=== PATIENT | male | born 1980 | race African-American/Black ===

== ENCOUNTER 2022-10-13 09:20 | Emergency (ER) | payer OTHER, MEDICAID, SELFPAY ==
--- NOTE | ~2022-10-13 | XR_ITS ---
EXAMINATION: XR CHEST CLINICAL INFORMATION: Trauma. COMPARISON: None available. TECHNIQUE: 2 views of the chest were obtained. FINDINGS: No significant abnormality is noted involving the heart, lungs, mediastinum, bony thorax or soft tissues. XR/XR chest 2V IMPRESSION: No acute cardiopulmonary process.
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
[2022-10-13 09:24] VITALS: BP 119/81; PULSE 65; RESP 18; TEMP 36.7; O2SAT 98; BMI 22.1
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
[2022-10-13] MEDS: Ibuprofen 600 MG TABLET PO (12:50)
[2022-10-13] MEDS: methocarbamoL 750 MG TABLET PO (12:50)
--- NOTE | 2022-10-13 12:54 | PC.NURSE ---
SLING IN PLACE PLAN IS FOR DISCHARGE
== END 2022-10-13 12:55 | disposition home or self-care (01) ==
PROVIDERS: Emergency Provider Emergency Medicine
DX: S40.011A Contusion of right shoulder, initial encounter (principal); S20.213A Contusion of bilateral front wall of thorax, initial encounter; M25.511 Pain in right shoulder; R07.89 Other chest pain; V18.4XXA Pedal cycle driver injured in noncollision transport accident in traffic accident, initial encounter; Y93.9 Activity, unspecified; Y92.9 Unspecified place or not applicable; Y99.9 Unspecified external cause status
CPT/HCPCS: 71046; 73030; 99283

== ENCOUNTER 2024-09-23 09:45 | Emergency (ER) | payer OTHER, SELFPAY ==
--- NOTE | 2024-09-23 | ECG_ITS ---
Test Reason : cp Blood Pressure : */* mmHG Vent. Rate : 69 BPM Atrial Rate : 69 BPM P-R Int : 136 ms QRS Dur : 86 ms QT Int : 368 ms P-R-T Axes : 52 15 22 degrees QTcB Int : 394 ms Normal sinus rhythm Minimal voltage criteria for LVH, may be normal variant ( Sokolow-Kumar ) Borderline ECG No previous ECGs available Referred By: Generic ED Physician Electronically Signed By: Alex Burk
--- NOTE | ~2024-09-23 | XR_ITS ---
EXAMINATION: XR CHEST 1 VIEW HISTORY: chest pain COMPARISON: Comparison is made with the prior examination dated 10/13/2022. FINDINGS: A single PA view of the chest is submitted. The lungs are expanded and clear. There is no pleural effusion, pneumothorax, or pulmonary vascular congestion. The heart is normal in size. The bones are intact. XR/XR chest 1V IMPRESSION: No acute cardiopulmonary abnormality. Electronically signed by: Juan Rosales MD 09/23/2024 10:25 AM EDT
[2024-09-23 10:03] VITALS: BP 110/65; PULSE 76; RESP 20; TEMP 37; O2SAT 99; BMI 22.1
[2024-09-23 10:19] LABS: MANUAL DIFF FLAG NO
[2024-09-23 10:21] LABS: Basophils Percent Auto 0.5 % (0-2); Eosinophils Percent Auto 0.1 % (0-4); Hematocrit 42.8 % (42.0-52.0); Imm Gran Abs Auto 0.02 X10*3/uL (0.00-0.03); Imm Gran Pct Auto 0.2 % (0.0-0.4); Lymphocytes Absolute Auto 0.8 X10*3/uL (1.2-4.9); Lymphocytes Percent Auto 9.3 % (20-40); Mean Corpuscular HGB Conc 32.7 g/dl (31.0-36.0); Mean Corpuscular Hemoglobin 31.1 pg (27.0-33.0); Mean Corpuscular Volume 95.1 fL (80.0-98.0); Mean Platelet Volume 9.8 fL (9.4-12.4); Monocytes Absolute Auto 0.6 X10*3/uL (0.1-1.2); Monocytes Percent Auto 6.7 % (2-11); Neutrophils Absolute Auto 6.8 x10*3/uL (2.0-8.3); Neutrophils Percent Auto 83.2 % (45-73); Platelet Count 247 X10*3/uL (160-400); Red Cell Distribution Width 12.1 % (11.0-16.0); White Blood Count 8.2 X10*3/uL (4.8-10.8)
[2024-09-23 10:51] LABS: Alanine Aminotransferase 24 U/L (0-40); Albumin Level 4.5 g/dL (3.5-5.0); Alkaline Phosphatase 58 U/L (39-117); Anion Gap 13 (12-20); Aspartate Amino Transferase 27 U/L (5-37); Bilirubin Total 0.7 mg/dL (0.0-1.0); Blood Urea Nitrogen 9 mg/dL (9-16); Carbon Dioxide 27 mmol/L (22-29); Chloride 103 mmol/L (96-108); Creatinine Clr Calc Pharmacy 90.6; Estimated Glomerular Filt Rate > 60; Glucose Random 98 mg/dL (60-115); Magnesium 1.8 mg/dL (1.6-2.6); Sodium 139 mmol/L (135-145); Total Protein 7.7 g/dL (6.5-8.0)
[2024-09-23 10:55] LABS: Troponin-I High Sensitivity < 2.7 ng/L (<3.5-35.0)
--- NOTE | 2024-09-23 12:47 | ECG_ITS ---
Test Reason : CP Blood Pressure : */* mmHG Vent. Rate : 62 BPM Atrial Rate : 62 BPM P-R Int : 126 ms QRS Dur : 86 ms QT Int : 382 ms P-R-T Axes : 76 18 24 degrees QTcB Int : 387 ms Normal sinus rhythm ST elevation, consider early repolarization Borderline ECG When compared with ECG of 23-Sep-2024 09:49, No significant change was found Referred By: Erica Burger Electronically Signed By: Alex Burk
--- NOTE | 2024-09-23 12:48 | ED_ITS ---
HPI - Chest Pain General Chief Complaint: Chest Pain Stated Complaint: CP Time Seen by Provider: 09/23/24 10:52 History of Present Illness HPI narrative: patient is a 43-year-old male presents today with having chest pain. The chest pain radiates to both sides. It is worse with deep breath worse with turning the certain way. Patient denies any fever chills no coughing or congestion. No history diabetes, hypertension, high cholesterol, smoking, mi. no history of leg swelling. No history of blood clots. No history of cancer. No history of hypercoagulable state. Patient is from home. No long distance travel. The pain is made better with sitting up. Worse with lying down. Worse with movement in his sudden direction is sharp in nature. Never had a stress test. Related Data Previous Rx's ?Medication ?Instructions ?Recorded ibuprofen 600 mg tablet 600 mg PO TID PRN pain #20 tabs 10/13/22 methocarbamol 750 mg tablet 750 mg PO TID PRN muscle spasm #20 10/13/22 tabs Allergies Allergy/AdvReac Type Severity Reaction Status Date / Time No Known Allergies Allergy Verified 09/23/24 10:05 Review of Systems 2 Review of Systems: Positive chest pain worse with deep breath worse with movement Yes all other systems are reviewed and are negative [facility] Past Medical History Attestation statement: The following information was validated with the patient. Social History Social History Advance Directives: Yes Advance Directives Information Provided: Yes Advance Directives on File: No Physical Exam 2 Vital Signs: Vital Signs: Last Vital Signs Temp 98.6 F 09/23/24 10:03 Pulse 76 09/23/24 10:03 Resp 20 09/23/24 10:03 BP 110/65 09/23/24 10:03 Pulse Ox 99 09/23/24 10:03 O2 Del Method Room Air 09/23/24 10:03 BMI result Body Mass Index 22.1 Appearance: Alert. Oriented X3. No acute distress. Eyes: Pupils equal, round and reactive to light. ENT: Pharynx normal. Neck: Normal inspection. Neck supple. No lymph nodes noted. No crepitus CVS: Normal heart rate and rhythm. Pulses normal. Normal S1 and S2 Respiratory: No respiratory distress. Breath sounds normal. No Wheezing. No rales Abdomen: Soft and nontender. No rigidity. No distention. good BS x4 Skin: Skin warm and dry. Normal skin color. Normal skin turgor. Extremities: No lower extremity edema. Neurovascular intact to all extremities. No Lacerations. No Rash Neuro: Oriented X 3. No motor deficit. No sensory deficit. Moving all extermities. No slurred speech Medical Decision Making Medical Decision Making MDM Narrative: My interpretation of patient's EKG showed a sinus rhythm heart rate is 70 ND QRS QTC normal there is what appears to be J-point elevation in V1 and V2. Will repeat a 2nd EKG. Patient's chest pain atypical for ACS. First set of troponin came back normal. Will get a 2nd set of troponin. My interpretation of patient's chest x-ray showed no evidence for pneumothorax no evidence for fracture no evidence for enlarged heart. Mediastinum was normal size. patient's D-dimer was negative. There is no evidence for PE in the setting of low risk. Patient's 2nd troponin negative will discharge home. Unlikely secondary to ACS as patient no significant cardiac risk factor patient's heart score is less than 3. Second set of troponin is also negative will discharge patient home Differential Diagnosis Differential Diagnoses: The differential diagnosis associated with the presentation includes ACS, pneumonia Admission/Observation Consideration of admission/observation: Escalation of care including admission/observation considered Lab Data [facility] Lab Attestation statement: I reviewed the patient's lab results. 09/23/24 10:11 09/23/24 10:11 Labs: Lab Results 09/23/24 09/23/24 Range/Units 10:11 13:33 WBC 8.2 (4.8-10.8) X10*3/uL RBC 4.50 L (4.60-5.80) X10*6/uL Hgb 14.0 (14.0-18.0) g/dl Hct 42.8 (42.0-52.0) % MCV 95.1 (80.0-98.0) fL MCH 31.1 (27.0-33.0) pg MCHC 32.7 (31.0-36.0) g/dl RDW 12.1 (11.0-16.0) % Plt Count 247 (160-400) X10*3/uL MPV 9.8 (9.4-12.4) fL Immature Gran % (Auto) 0.2 (0.0-0.4) % Neut % (Auto) 83.2 H (45-73) % Lymph % (Auto) 9.3 L (20-40) % [place] % (Auto) 6.7 (2-11) % Eos % (Auto) 0.1 (0-4) % Baso % (Auto) 0.5 (0-2) % Lymph # (Auto) 0.8 L (1.2-4.9) X10*3/uL [place] # (Auto) 0.6 (0.1-1.2) X10*3/uL Eos # (Auto) 0.0 (0.0-0.4) X10*3/uL Baso # (Auto) 0.0 (0.0-0.2) X10*3/uL Abs Immat Gran (auto) 0.02 (0.00-0.03) X10*3/uL Absolute Neuts (auto) 6.8 (2.0-8.3) x10*3/uL Absolute Nucleated RBC 0.000 (0.0-0.012) X10*3/uL Nucleated RBC % (auto) 0.0 (0.0-0.2) /100WBC D-Dimer High Sensitivty < 150 NG/ML Sodium 139 (135-145) mmol/L Potassium 4.0 (3.3-5.1) mmol/L Chloride 103 (96-108) mmol/L Carbon Dioxide 27 (22-29) mmol/L Anion Gap 13 (12-20) BUN 9 (9-16) mg/dL Creatinine 0.99 (0.5-1.4) mg/dL Estim Creat Clear Calc 90.6 Estimated GFR > 60 Random Glucose 98 (60-115) mg/dL Calcium 9.0 (8.4-10.2) mg/dL Magnesium 1.8 (1.6-2.6) mg/dL Total Bilirubin 0.7 (0.0-1.0) mg/dL AST 27 (5-37) U/L ALT 24 (0-40) U/L Alkaline Phosphatase 58 (39-117) U/L Troponin I High Sens < 2.7 < 2.7 (<3.5-35.0) ng/L Total Protein 7.7 (6.5-8.0) g/dL Albumin 4.5 (3.5-5.0) g/dL Independent Interpretation I performed an independent interpretation of an: EKG ( my interpretation of patient's EKG showed a sinus rhythm heart rate was 70 ND QRS QTC normal there is J-point elevation noted. A 2nd EKG was done at approximately 01:00 o'clock in the afternoon essentially the same heart rate was 60 ND QRS QTC normal there is significant J-point elevation noted ov) and Plain X-Ray ( My interpretation patient's chest x-ray showed no evidence of pneumonia no pneumothorax) Radiology Impression Discussion of test interpretation with radiology: I have reviewed the radiologist's reading. External Record Review External record reviewed: Inpatient record Social Determinants Patient?s care significantly limited by Social Determinants of Health including: Problems related to primary support group Discharge Plan Discharge Clinical Impression: Chest pain Patient Disposition: Home, Self-Care Instructions: Chest Pain (ED) Prescriptions: No Action ibuprofen 600 mg tablet 600 mg PO TID PRN (Reason: pain) Qty: 20 0RF methocarbamol 750 mg tablet 750 mg PO TID PRN (Reason: muscle spasm) Qty: 20 0RF Referrals: Sudhakar Castañeda MD [Physician] - 09/25/24 Print Language: Irish
[2024-09-23 13:48] LABS: D Dimer High Sensitivity < 150 NG/ML
[2024-09-23 14:00] VITALS: BP 120/78; PULSE 68; RESP 18; TEMP 37; O2SAT 97
[2024-09-23 14:09] LABS: Troponin-I High Sensitivity < 2.7 ng/L (<3.5-35.0)
[2024-09-23 14:35] VITALS: BP 120/78; PULSE 68; RESP 18; TEMP 37; O2SAT 97
== END 2024-09-23 14:36 | disposition home or self-care (01) ==
PROVIDERS: Emergency Provider Emergency Medicine Emergency Medical Services
DX: R07.89 Other chest pain (principal); Z79.899 Other long term (current) drug therapy
CPT/HCPCS: 36415; 71045; 80053; 83735; 84484; 85025; 85379; 93005; 99283; 99285

== ENCOUNTER → 2024-09-23 09:49 | Outpatient (BNV) | payer OTHER, SELFPAY | PROVIDERS: Emergency Provider Emergency Medicine Emergency Medical Services; Visit Provider Internal Medicine Cardiovascular Disease | DX: R07.9 Chest pain, unspecified (principal); I21.29 ST elevation (STEMI) myocardial infarction involving other sites | CPT/HCPCS: 93010 ==

== ENCOUNTER → 2024-09-23 10:10 | Outpatient (BNV) | payer OTHER, SELFPAY | PROVIDERS: Emergency Provider Emergency Medicine Emergency Medical Services; Visit Provider Radiology Diagnostic Radiology | DX: R07.9 Chest pain, unspecified (principal) | CPT/HCPCS: 71045 ==